=== PATIENT | female | born 1990 | race Caucasian/White ===

== ENCOUNTER 2021-10-05 12:27 | Emergency (ER) | payer OTHER ==
[2021-10-05 13:29] LABS: #Eosinphils 0.1 10x3/uL (0.0-0.5); #Monocytes 0.5 10x3/uL (0.0-1.1); #Neutrophils 8.4 10x3/uL (1.5-8.4); %Basophils 0.2 % (0.0-2.0); %Eosinophils 0.8 % (0.0-6.0); %Lymphocytes 13.8 % (18.0-47.0); %Monocytes 4.5 % (0.0-10.0); %Neutrophils 80.4 % (40.0-75.0); Mean Corpuscular HGB CONC 33.5 g/dL (32.0-36.0); Mean Corpuscular Hemoglobin 31.3 pg (27.0-33.0); Mean Corpuscular Volume 93.5 fl (81.6-98.3); Mean Platelet Volume 11.6 fl (7.4-10.4); Platelet Count 210 10x3/uL (150-450); RBC Distribution Width 11.5 % (11.5-14.5); Red Blood Cell (RBC) Count 4.47 10x6/uL (3.90-5.03); White Blood Cell (WBC) Count 10.5 10x3/uL (3.5-10.5)
[2021-10-05 13:41] LABS: ALT (SGPT) 27 U/L (8-55); AST (SGOT) 24 U/L (5-34); Albumin 4.3 g/dL (3.5-5.0); Alkaline Phosphatase 41 U/L (40-110); Anion Gap 13 mmol/L (10-20); BUN (Urea Nitrogen) 7 mg/dL (7.0-18.7); Bilirubin, Total 0.8 mg/dL (0.2-1.2); Calc. Creatinine Clearance 0 mL/min (70-130); Calcium 9.7 mg/dL (7.8-10.44); Carbon Dioxide 22 mmol/L (22-29); Chloride 104 mmol/L (98-107); Globulin 3.4 g/dL (2.4-3.5); Glucose 87 mg/dL (70-105); Potassium 3.6 mmol/L (3.5-5.1); Protein, Total 7.7 g/dL (6.0-8.3); Sodium 135 mmol/L (136-145)
== END 2021-10-05 15:00 | disposition home or self-care (01) ==
LOC: CSHERS 12:27
DX: O21.0 Mild hyperemesis gravidarum (principal); Z3A.12 12 weeks gestation of pregnancy
CPT/HCPCS: 80053; 85025; 99284

== ENCOUNTER 2021-11-23 10:10 | Emergency (ER) | payer MEDICAID, OTHER ==
[2021-11-23] MEDS ORDERED: Morphine 4 MG/ML VIAL ONE (14:38)
[2021-11-23] MEDS ORDERED: Acetaminophen 500 MG TAB ONE (14:39)
[2021-11-23] MEDS ORDERED: Ondansetron PF 4 MG/2 ML Vial ONE (14:39)
[2021-11-23 14:59] LABS: #Monocytes 0.4 10x3/uL (0.0-1.1); #Neutrophils 4.8 10x3/uL (1.5-8.4); %Basophils 0.2 % (0.0-2.0); %Lymphocytes 6.1 % (18.0-47.0); %Neutrophils 86.2 % (40.0-75.0); Hemoglobin 11.3 g/dL (12.0-15.5); Mean Corpuscular HGB CONC 34.2 g/dL (32.0-36.0); Mean Corpuscular Volume 93.5 fl (81.6-98.3); Mean Platelet Volume 11.9 fl (7.4-10.4); Platelet Count 143 10x3/uL (150-450); RBC Distribution Width 12.3 % (11.5-14.5); Red Blood Cell (RBC) Count 3.53 10x6/uL (3.90-5.03); White Blood Cell (WBC) Count 5.6 10x3/uL (3.5-10.5)
[2021-11-23 15:19] LABS: ALT (SGPT) 48 U/L (8-55); AST (SGOT) 51 U/L (5-34); Albumin 3.8 g/dL (3.5-5.0); Alkaline Phosphatase 46 U/L (40-110); Anion Gap 13 mmol/L (10-20); BUN (Urea Nitrogen) 8 mg/dL (7.0-18.7); Bilirubin, Total 0.3 mg/dL (0.2-1.2); CRP (Inflammatory) 2.71 mg/dL (= or < 0.5); Calc. Creatinine Clearance 0 mL/min (70-130); Calcium 8.8 mg/dL (7.8-10.44); Carbon Dioxide 19 mmol/L (22-29); Chloride 105 mmol/L (98-107); Glucose 93 mg/dL (70-105); Magnesium 1.7 mg/dL (1.6-2.6); Potassium 3.5 mmol/L (3.5-5.1); Protein, Total 6.8 g/dL (6.0-8.3); Sodium 133 mmol/L (136-145)
[2021-11-23 16:57] LABS: SARS-CoV-2 NAA Rapid Test DETECTED (NotDetected)
== END 2021-11-23 17:32 | disposition home or self-care (01) ==
LOC: CSHERS 10:10
DX: O98.512 Other viral diseases complicating pregnancy, second trimester (principal); U07.1 COVID-19; Z3A.20 20 weeks gestation of pregnancy; O99.891 Other specified diseases and conditions complicating pregnancy; R11.2 Nausea with vomiting, unspecified; O99.012 Anemia complicating pregnancy, second trimester
CPT/HCPCS: 0240U; 80053; 83605; 83735; 85025; 86140; 93005; 96374; 96375; J2270; J2405

== ENCOUNTER 2022-03-27 11:45 | Day surgery (SDC) | payer OTHER ==
[2022-03-27 12:09] VITALS: BMI 27.0
[2022-03-27 13:06] LABS: Fetal Membranes Rupture No Membranes Rupture (No Rupture)
[2022-03-27] MEDS ORDERED: hydrALAZINE 20 MG/ML VIAL SLOW IVP PRN (13:35)
[2022-03-27] MEDS ORDERED: metroNIDAZOLE 500 MG TAB PO SCH (21:00)
== END 2022-03-27 16:02 | disposition home or self-care (01) ==
LOC: CSHLD/OP 11:45
PROVIDERS: ATTEND Obstetrics & Gynecology
DX: O99.891 Other specified diseases and conditions complicating pregnancy (principal); N89.8 Other specified noninflammatory disorders of vagina; O23.593 Infection of other part of genital tract in pregnancy, third trimester; O34.219 Maternal care for unspecified type scar from previous cesarean delivery; Z3A.37 37 weeks gestation of pregnancy
CPT/HCPCS: 84112; 87480; 87510; 87660

== ENCOUNTER 2022-04-11 05:40 | Inpatient (IN) | payer OTHER ==
[2022-04-09 12:24] LABS: Hemoglobin 12.1 g/dL (12.0-15.5); Mean Corpuscular HGB CONC 33.5 g/dL (32.0-36.0); Mean Corpuscular Volume 89.6 fl (81.6-98.3); Mean Platelet Volume 12.3 fl (7.4-10.4); Platelet Count 194 10x3/uL (150-450); RBC Distribution Width 11.9 % (11.5-14.5); Red Blood Cell (RBC) Count 4.03 10x6/uL (3.90-5.03); White Blood Cell (WBC) Count 8.5 10x3/uL (3.5-10.5)
[2022-04-09 12:59] LABS: Syphilis Antibody Nonreactive (Nonreactive); Syphilis Antibody Index 0.15 S/CO (<1.00 Non-Reactive)
[2022-04-09 13:02] LABS: Hep B Surf Ag Non-Reactive S/CO (NonReactive)
[2022-04-09 13:25] LABS: HBSAg Index 0.14 S/CO (0-0.99)
[2022-04-11] MEDS ORDERED: Ondansetron PF 4 MG/2 ML Vial IVP PRN ×3 (05:43→12:02)
[2022-04-11] MEDS ORDERED: Bicitra 30 ML UDCUP PO PRN (05:43)
[2022-04-11] MEDS ORDERED: Famotidine/PF 20 mg/2ml Vial SLOW IVP PRN (05:43)
[2022-04-11] MEDS ORDERED: Promethazine HCl 25 MG/ML VIAL IM PRN ×2 (05:43→07:16)
[2022-04-11] MEDS ORDERED: ceFAZolin 2 GM/Dextrose 50 ML 2 GM in Premix Bag 1 BAG IVPB SCH (05:43)
[2022-04-11] MEDS ORDERED: hydrALAZINE 20 MG/ML VIAL SLOW IVP PRN ×2 (05:43→12:02)
[2022-04-11 05:58] VITALS: BMI 27.1
[2022-04-11] MEDS ORDERED: Lactated Ringer's 1,000 ML IV SCH (06:00)
[2022-04-11] MEDS ORDERED: Ondansetron PF 4 MG/2 ML Vial ONE (07:06)
[2022-04-11] MEDS ORDERED: PHENYLEPHRINE-NS 100 MCG/ML 10 ML SYRINGE ONE (07:07)
[2022-04-11] MEDS ORDERED: Morphine PF 10 MG/10 ML VIAL ONE (07:07)
[2022-04-11] MEDS ORDERED: Ketorolac Tromethamine 30 MG/ML VIAL ONE (07:07)
[2022-04-11] MEDS ORDERED: Oxytocin 10 UNITS/ML VIAL ONE (07:07)
[2022-04-11] MEDS ORDERED: Meperidine HCl/PF 25 MG/ML VIAL SLOW IVP PRN (07:16)
[2022-04-11] MEDS ORDERED: Naloxone HCl 0.4 mg/ml Vial IVP PRN ×2 (07:16)
[2022-04-11] MEDS ORDERED: Ketorolac Tromethamine 30 MG/ML VIAL IVP PRN (07:16)
[2022-04-11] MEDS ORDERED: diphenhydrAMINE 50 MG/ML VIAL IVP PRN (07:16)
[2022-04-11] MEDS ORDERED: Ondansetron HCl/PF 4 MG/2 ML Vial IVP PRN (07:16)
[2022-04-11] MEDS ORDERED: Moisturizing Cream (Eucerin) 113 GM JAR TOP PRN (07:16)
[2022-04-11] MEDS ORDERED: Naloxone HCl 0.4 mg/ml Vial IV PRN (07:16)
[2022-04-11] MEDS ORDERED: Promethazine HCl 25 MG SUPP PR PRN (07:16)
[2022-04-11] MEDS ORDERED: Fentanyl 100 MCG/2 ML VIAL SLOW IVP PRN (07:16)
[2022-04-11] MEDS ORDERED: Ketorolac Tromethamine 30 MG/ML VIAL IVP SCH (07:30)
[2022-04-11] MEDS ORDERED: Communication Order-Pharmacy FS SCH (07:30)
[2022-04-11] MEDS ORDERED: Midazolam HCl 2 mg/2 ml Vial ONE (08:07)
[2022-04-11] MEDS ORDERED: Fentanyl 100 MCG/2 ML VIAL ONE (08:18)
[2022-04-11] MEDS ORDERED: NS w/ Oxytocin 30 units 500 ML ONE (09:10)
[2022-04-11] MEDS ORDERED: Boostrix 0.5 ML (Tdap) VIAL IM ONE (12:02)
[2022-04-11] MEDS ORDERED: HYDROcodone/Acetaminophen 5/325 mg Tablet PO PRN ×2 (12:02)
[2022-04-11] MEDS ORDERED: Lanolin Ointment 7 GM TUBE TOP PRN (12:02)
[2022-04-11] MEDS ORDERED: Acetaminophen 325 MG TAB PO PRN (12:02)
[2022-04-11] MEDS ORDERED: Bisacodyl 10 MG SUPP PR PRN (12:02)
[2022-04-11] MEDS ORDERED: diphenhydrAMINE 25 MG CAP PO PRN (12:02)
[2022-04-11] MEDS: Ferrous Sulfate 325 MG TAB PO SCH (20:48)
[2022-04-11] MEDS: Docusate 100 MG CAP PO SCH (20:49)
[2022-04-12] MEDS: Simethicone Chewable 80 MG TAB PO PRN ×2 (01:03→08:38)
[2022-04-12 03:46] LABS: Hemoglobin 8.5 g/dL (12.0-15.5); Mean Corpuscular HGB CONC 33.2 g/dL (32.0-36.0); Mean Corpuscular Hemoglobin 30.2 pg (27.0-33.0); Mean Corpuscular Volume 91.1 fl (81.6-98.3); Mean Platelet Volume 12.2 fl (7.4-10.4); Platelet Count 148 10x3/uL (150-450); RBC Distribution Width 11.8 % (11.5-14.5); Red Blood Cell (RBC) Count 2.81 10x6/uL (3.90-5.03); White Blood Cell (WBC) Count 8.1 10x3/uL (3.5-10.5)
[2022-04-12] MEDS: Ferrous Sulfate 325 MG TAB PO SCH (08:38)
[2022-04-12] MEDS: Docusate 100 MG CAP PO SCH (08:38)
[2022-04-12] MEDS ORDERED: Prenatal Vitamin 1 TAB PO SCH (09:00)
[2022-04-12] MEDS ORDERED: Ibuprofen 800 MG TAB PO SCH ×2 (10:45→14:00)
[2022-04-12 19:39] VITALS: BP 121/64; TEMP 98.7
== END 2022-04-12 17:10 | disposition home or self-care (01) | DRG 784 ==
LOC: CSHLD 05:40 → CSHPP 10:51
PROVIDERS: ADMIT Student in an Organized Health Care Education/Training Program; ATTEND Student in an Organized Health Care Education/Training Program
PROC: 10D00Z1 Extraction of Products of Conception, Low, Open Approach (ICD-10-PCS; principal; 2022-04-12)
PROC: 0UT70ZZ Resection of Bilateral Fallopian Tubes, Open Approach (ICD-10-PCS; 2022-04-12)
DX: O34.211 Maternal care for low transverse scar from previous cesarean delivery (principal); D62 Acute posthemorrhagic anemia; O34.03 Maternal care for unspecified congenital malformation of uterus, third trimester; Q51.3 Bicornate uterus; Z3A.39 39 weeks gestation of pregnancy; Z86.16 Personal history of COVID-19; Z37.0 Single live birth; Z79.899 Other long term (current) drug therapy; Z20.822 Contact with and (suspected) exposure to COVID-19; O90.81 Anemia of the puerperium; Z80.3 Family history of malignant neoplasm of breast
CPT/HCPCS: 36415; 51702; 85027; 86780; 86850; 86900; 86901; 87340; 88302; J1885; J2250; J2274; J2405; J2590; J3010; U0003; U0005